=== PATIENT | male | born 1945 | race Caucasian/White ===

== ENCOUNTER → 2024-01-25 11:08 | Outpatient (REF) | payer MEDICARE, BC, SELFPAY ==
[2024-01-25 12:21] LABS: ALT (SGPT) 34 U/L (0-50); AST (SGOT) 36 U/L (17-59); HDL Cholesterol 47 mg/dl; LDL Cholesterol, Calculated 75 mg/dl; Total Cholesterol 144 mg/dl (50-199); Triglyceride 113 mg/dl (10-149); Very Low Density Lipoprotein 22 mg/dl (0-30)
== END ==
LOC: REG 11:08
PROVIDERS: ATTENDING PHYSICIAN Internal Medicine Cardiovascular Disease; FAMILY PHYSICIAN Family Medicine
DX: E78.5 Hyperlipidemia, unspecified (principal)
CPT/HCPCS: 36415; 80061; 84450; 84460

== ENCOUNTER → 2024-05-01 10:16 | Outpatient (REF) | payer MEDICARE, BC, SELFPAY ==
[2024-05-01 12:28] LABS: Blood Urea Nitrogen 28 mg/dl (9-20); Calcium 9.4 mg/dl (8.4-10.2); Carbon Dioxide 26 mmol/L (22-30); Chloride 103 mmol/L (98-107); Glucose 93 mg/dl (70-99); Potassium 4.4 mmol/L (3.5-5.1); Sodium 139 mmol/L (135-145); eGFR > 60.00
== END ==
LOC: REG 10:16
PROVIDERS: ATTENDING PHYSICIAN Surgery Vascular Surgery; FAMILY PHYSICIAN Family Medicine
DX: I10 Essential (primary) hypertension (principal)
CPT/HCPCS: 36415; 80048

== ENCOUNTER → 2024-05-07 09:59 | Outpatient (REF) | payer MEDICARE, BC, SELFPAY | LOC: RAD 09:59 | PROVIDERS: ATTENDING PHYSICIAN Surgery Vascular Surgery; FAMILY PHYSICIAN Family Medicine | DX: I77.3 Arterial fibromuscular dysplasia (principal) | CPT/HCPCS: 70496; 70498; Q9967 ==

== ENCOUNTER 2025-03-07 23:51 | Emergency (ER) | payer MEDICARE, BC, SELFPAY ==
[2025-03-07 23:54] VITALS: BP 130/80
--- NOTE | 2025-03-08 01:33 | ED.GENMED ---
History of Present Illness
General
Chief Complaint: Musculo-Skeletal Complaint
Time Seen by Provider: 03/08/25 00:29
History of Present Illness
History of Present Illness:
79-year-old male presents the emergency department for evaluation of right chest wall pain after a fall yesterday, states he fell off a stonewall onto concrete steps landing on the edge of the step. He has had increased pain since yesterday, pain
is mildly pleuritic but worse with any movement of his chest or right upper extremity. Denies hemoptysis or hematuria. Not on any anticoagulants
Past History
Past History
ED Past Medical History: HTN and Psychiatric; Negative Hypercholesterolemia, IDDM or NIDDM
ED Past Surgical History: Negative Appendectomy, Bowel resection, Brain, Cardiac or Cholecystectomy
Social History
Tobacco: Non-smoker
Alcohol: None
Drug: None
Personal: Single
Living: with family
Employment: Employed
Family History
Family History: Hypertension
Review of Systems
Review of Systems
Allergies reviewed?: Yes
All Other Systems: ROS reviewed and negative except as documented in HPI and ROS
Phy Exam
Physical Exam
Physical Exam:
GEN: Well appearing, NAD, WDWN
HEENT: Oral mucosa moist, no scleral icterus
Cardiac: Regular rate
Lung: No respiratory distress, no tachypnea, lungs clear to auscultation
Chest: No visible ecchymosis or deformity. Reproducible tenderness to the right chest wall in the midaxillary line
MSK: No gross deformity or injuries
Skin: Good color, no pallor or jaundice, no rashes
Neuro: AO x3, moves all extremities freely
Psych: Calm, cooperative
Course
Orders/Labs/Results
Orders:
Orders
03/08/25 00:02
Ribs, Right 3 View W/PA Chest [CR Ribs-right 3 Vw W/pa Chest*] Urgent
Comment:
Reason For Exam: FALL
03/08/25 01:32
Acetaminophen [Tylenol] 1,000 mg PO NOW STA
Ketorolac [Toradol] 30 mg IM NOW STA
Lidocaine [Lidocaine 4% Patch] 1 patch TOPICAL NOW STA
Apply Lidocaine patch(s) to:: R chest wall
Vital Signs
Initial and Last Documented VS:
Initial Vital Signs
Temp Pulse Resp BP Pulse Ox
98.1 F 84 20 130/80 96
03/07/25 23:54 03/07/25 23:54 03/07/25 23:54 03/07/25 23:54 03/07/25 23:54
Last Documented Vital Signs
Temp Pulse Resp BP Pulse Ox
98.1 F 84 20 130/80 96
03/07/25 23:54 03/07/25 23:54 03/07/25 23:54 03/07/25 23:54 03/07/25 23:54
MDM/Problems Addressed
MDM/Problems Addressed:
X-rays independently interpreted by me are negative for acute osseous abnormality. Discussed supportive care for chest wall contusions or occult rib fractures
*Critical Care Note
Total Time (30-74mins, 75-104mins- exclusive of procedures): Not Applicable
ED Attending Note
-
Portions of this chart may have been created with voice recognition software.� Occasional wrong word or��sound alike� substitutions may have occurred due to the inherent limitations of voice recognition software.
Discharge Plan
Departure
Patient Disposition: Home (Routine Discharge)
Date of Disposition: 03/08/25
Time of Disposition: 02:09
Patient with high blood pressure during this ER visit?: No
Discharge Problem:
Chest wall contusion
Instructions: Rib fracture or bruised rib - ED discharge instructions
Prescriptions:
New
oxycodone-acetaminophen [Percocet] 5-325 mg tablet
1 tab PO Q6HPRN PRN (Reason: pain) Qty: 8 0RF
No Action
aspirin 81 MG tablet,delayed release (DR/EC)
81 mg PO DAILY
folic acid 1 MG tablet
1 mg PO DAILY
cholecalciferol (vitamin D3) [Vitamin D3] 400 UNIT tablet
800 unit PO DAILY
Diovan:
1 tab PO HS
Patient Comments:
pt does not know dose
Wellbutrin:
1 tab PO DAILY
Patient Comments:
pt does not know dose
fluoxetine 10 MG capsule
10 mg PO .STOPPED 05/15/11
Patient Comments:
to start on Lexapro today
amoxicillin-pot clavulanate 1 TABLET tablet
1 tab PO Q12 Qty: 19 0RF
Referrals:
Lionel Guthrie MD [Family Provider, Family Practice]
Activity Restrictions/Additional Instructions:
Take Tylenol and ibuprofen in combination with the prescribed pain medicine as needed
Interventions
Interventions:
*Risk Screen - Suicide Last Done: 03/07/25 23:54
*General Assessment Last Done: 03/08/25 01:41
*Neglect/Abuse Screening Last Done: 03/07/25 23:54
*ED- Fall Risk Assessment Last Done: 03/08/25 01:41
*ED COVID-19 Vaccine History Last Done: 03/08/25 01:41
*Nursing Disposition Last Done: 03/08/25 02:20
ED-Musculoskeletal Assessment Last Done: 03/08/25 01:41
Discharge Date and Time
Discharge Date/Time: 03/08/25 02:21
Print Language: COMORAN
[2025-03-08] MEDS: TYLENOL 1000 MG PO (01:55)
[2025-03-08] MEDS: LIDOCAINE 4% PATCH 1 PATCH TOPICAL (01:56)
[2025-03-08] MEDS: TORADOL 30 MG IM (01:56)
== END 2025-03-08 02:21 | disposition home or self-care (01) ==
LOC: EMR 23:51
PROVIDERS: EMERGENCY PHYSICIAN Emergency Medicine; FAMILY PHYSICIAN Family Medicine
DX: S20.219A Contusion of unspecified front wall of thorax, initial encounter (principal); W19.XXXA Unspecified fall, initial encounter; I10 Essential (primary) hypertension; Z82.49 Family history of ischemic heart disease and other diseases of the circulatory system; Z90.49 Acquired absence of other specified parts of digestive tract
CPT/HCPCS: 99283; 96372; 71101

== ENCOUNTER → 2025-04-30 14:04 | Outpatient (REF) | payer MEDICARE, BC, SELFPAY ==
[2025-04-30 15:30] LABS: Blood Urea Nitrogen 29 mg/dl (9-20); Calcium 9.0 mg/dl (8.4-10.2); Carbon Dioxide 27 mmol/L (22-30); Chloride 106 mmol/L (98-107); Glucose 101 mg/dl (70-99); Potassium 4.6 mmol/L (3.5-5.1); Sodium 139 mmol/L (135-145); eGFR > 60.00
== END ==
LOC: REG 14:04
PROVIDERS: ATTENDING PHYSICIAN Surgery Vascular Surgery; FAMILY PHYSICIAN Chiropractor
DX: I72.3 Aneurysm of iliac artery (principal); I72.8 Aneurysm of other specified arteries
CPT/HCPCS: 36415; 80048

== ENCOUNTER → 2025-05-12 10:34 | Outpatient (REF) | payer MEDICARE, BC, SELFPAY | LOC: RAD 10:34 | PROVIDERS: ATTENDING PHYSICIAN Surgery Vascular Surgery | DX: I72.3 Aneurysm of iliac artery (principal); I72.8 Aneurysm of other specified arteries | CPT/HCPCS: 74174; Q9967 ==